=== PATIENT | female | born 1945 | race Caucasian/White ===

== ENCOUNTER 2017-12-26 07:47 | Day surgery (SDC) | payer BC ==
[2017-12-26] MEDS ORDERED: Sodium Chloride 0.9% 1,000 ML IV SCH (08:00)
[2017-12-26] MEDS ORDERED: Sodium Chloride 0.9% 5 ML Syringe FLUSH PRN (08:00)
[2017-12-26] MEDS ORDERED: Propofol 200 MG/20 ML SDV ONE (09:12)
[2017-12-26] MEDS ORDERED: Propofol 200 MG/20 ML SDV IV ONE (10:14)
--- NOTE | 2017-12-26 11:33 | PCM.PRNOTE ---
- Free Text/Narrative Note: PROCEDURE PERFORMED: Colonoscopy PRE-PROCEDURE DIAGNOSIS/INDICATION FOR PROCEDURE: Positive FIT CONSENT: Informed consent was obtained prior to the procedure after discussion of the risks (including pain, bleeding, infection, perforation, adverse reaction to anesthesia, cardiovascular event), benefits and alternatives and expected outcomes. The patient expressed understanding and wished to proceed. Verbal consent given and consent form signed. PROCEDURAL PAUSE: Completed SEDATION: Per anesthesia DESCRIPTION OF PROCEDURE: Patient was placed in the left lateral decubitus position. After adequate sedation and anesthetic was administered, a rectal exam was performed revealing no abnormalities. A lubricated Olympus Video Colonoscope was inserted into the rectum and air insufflation was performed. The colonoscope was advanced through the rectum, sigmoid, descending, transverse , and ascending colon without difficulties. The cecum was reached and the ileocecal valve as well as the appendiceal orifice were identified and pictorially documented. After adequate visualization of the cecum, the scope was withdrawn, giving 360-degree views of the colonic mucosa and retroflexion was performed in the rectum with the following findings noted: Ileocecal valve: Normal Cecum: 4mm polyp removed with cold forceps without residual polypoid tissue noted and adequate hemostasis noted Ascending colon: Normal Hepatic flexure: Normal Transverse colon: Normal Splenic flexure: Normal Descending colon: Normal Sigmoid colon: Normal Rectum: Normal The scope was straightened, air suction performed, and the scope withdrawn without complication. Preparation adequacy good. IMPRESSION: Colonoscopy performed revealing one polyp, pathology now pending PLAN: Follow-up in clinic to review pathology results once received and determine repeat colonoscopy interval
== END 2017-12-26 12:15 | disposition home or self-care (01) ==
LOC: KA.SDS 07:47
PROVIDERS: ATTEND Family Medicine
DX: D12.0 Benign neoplasm of cecum (principal); D50.9 Iron deficiency anemia, unspecified; E11.22 Type 2 diabetes mellitus with diabetic chronic kidney disease; I12.9 Hypertensive chronic kidney disease with stage 1 through stage 4 chronic kidney disease, or unspecified chronic kidney disease; N18.9 Chronic kidney disease, unspecified; E78.5 Hyperlipidemia, unspecified; E03.9 Hypothyroidism, unspecified; M81.0 Age-related osteoporosis without current pathological fracture; Z79.4 Long term (current) use of insulin; Z79.899 Other long term (current) drug therapy; Z88.8 Allergy status to other drugs, medicaments and biological substances; Z98.84 Bariatric surgery status
CPT/HCPCS: 82962; 88305; J2704; J7030

== ENCOUNTER 2019-04-16 17:28 | Emergency (ER) | payer BC ==
[2019-04-16] MEDS ORDERED: Lidocaine 1% with EPINEPHrine 1:100,000 20 ML MDV ONE (18:02)
--- NOTE | 2019-04-16 18:47 | EDM.PDOC ---
ED HPI GENERAL MEDICAL PROBLEM - General Chief Complaint: ENT Problem Stated Complaint: HIT IN LEFT EYE WITH BASEBALL Time Seen by Provider: 04/16/19 17:38 Source of Information: Reports: Patient, Significant Other History Limitations: Reports: No Limitations - History of Present Illness INITIAL COMMENTS - FREE TEXT/NARRATIVE: Patient presents with left eye and cheek pain and swelling after being hit with a baseball. She was pitching to her grandson and the batted ball hit her directly in the left eye. She fell to the ground but didn't have LOC. The eye is swollen completely shut but she thinks she can see okay out of it. She feels like her sinuses are full. She denies any neck pain. Treatments INDEPENDENT VIDEO PRODUCER: Reports: Cold Therapy - Related Data Allergies Allergy/AdvReac Type Severity Reaction Status Date / Time [id number] Reductase Allergy Muscle Verified 04/16/19 18:05 Inhibitor Aches Home Meds: Home Meds Ascorbate Calcium [Vitamin C] 500 mg PO DAILY 12/23/17 [History] Calcium Carb/Vit D3/Minerals [Calcium 600+D Plus Minerals] 1 each PO DAILY 12/23 [History] Cyanocobalamin (Vitamin B12) [Vitamin B12] 500 mcg PO DAILY 12/23/17 [History] Dulaglutide [Trulicity] 0.75 mg SQ WEEKLY 12/23/17 [History] Insulin Detemir [Levemir Flextouch] 14 unit SQ BEDTIME 12/23/17 [History] Levothyroxine 75 mcg PO ACBREAKFAST 12/23/17 [History] Multivitamin with Minerals [Multiple Vitamin] 1 tab PO DAILY 12/23/17 [History] Omeprazole [priLOSEC OTC] 20 mg PO DAILY PRN 12/23/17 [History] hydroCHLOROthiazide [Hydrochlorothiazide] 12.5 mg PO DAILY 12/23/17 [History] metFORMIN HCl [Metformin HCl] 1,000 mg PO BID 12/23/17 [History] Denosumab [Prolia] 60 mg SUBCUT ASDIRECTED 03/15/19 [History] Enalapril [Vasotec] 5 mg PO BEDTIME 03/15/19 [History] Past Medical History HEENT History: Reports: Impaired Vision Cardiovascular History: Reports: High Cholesterol, Hypertension Gastrointestinal History: Reports: GERD DIRECTOR EMERGENCY DEPARTMENT History: Reports: Musculoskeletal History: Reports: Fracture, Other (See Below) Other Musculoskeletal History: ganglion cyst of wrist Endocrine/Metabolic History: Reports: Diabetes, Type II, Hyperparathyroidism, Hypothyroidism, Obesity/BMI 30+, Osteoporosis Hematologic History: Reports: Anemia, B12 Deficiency, Iron Deficiency Oncologic (Cancer) History: Reports: Squamous Cell Carcinoma, Other (See Below) Other Oncologic History: 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 Denies: Ear Discharge, Ear Pain, Eye Discharge, Throat Pain Respiratory: Denies: Shortness of Breath, Cough Cardiovascular: Denies: Chest Pain, Lightheadedness, Syncope Endocrine: Reports: No Symptoms GI/Abdominal: Denies: Abdominal Pain, Nausea, Vomiting : Reports: No Symptoms Musculoskeletal: Denies: Neck Pain, Shoulder Pain, Arm Pain, Back Pain, Hand Pain Skin: Denies: Cyanosis, Jaundice, Mottled, Pallor, Diaphoresis Neurological: Denies: Confusion, Dizziness, Headache, Seizure, Syncope, Trouble Speaking, Difficulty Walking Psychiatric: Denies: Agitation, Anxiety, Confusion ED EXAM GENERAL W FULL EYE - Physical Exam Exam: See Below Exam Limited By: No Limitations General Appearance: Alert, WD/WN, No Apparent Distress Eye Exam: Left Eye: Proptosis (minimal noted on CT), Bilateral Eye: EOMI, Normal Fundi (bilat red reflex), PERRL Eyelids: Right: Normal Appearance, Left: Edema, Ecchymosis Conjunctiva & Sclera: Right: Normal Appearance, Left: Subconjuctival Hemorrhage (lateral) Extraocular Movements: Bilateral: Intact Pupils: Normal Accommodation Pupillary Size: Bilateral: 3 mm Pupillary Reaction: Bilateral: Brisk Ears: Normal External Exam, Normal Canal, Hearing Grossly Normal, Normal TMs Nose: Normal Inspection, No Blood Throat/Mouth: Normal Inspection, Normal Lips, Normal Voice, No Airway Compromise Head: Facial Swelling (left cheek and lower eye lid; left eye lids are completely closed over eye unless manually opened.), Other (3 cm forehead laceration just above left lateral eyebrow) Neck: Normal Inspection, Supple, Non-Tender, Full Range of Motion Respiratory/Chest: No Respiratory Distress, Lungs Clear, Normal Breath Sounds Cardiovascular: Regular Rate, Rhythm, No Murmur GI/Abdominal: Normal Bowel Sounds, Soft, Non-Tender Back Exam: Normal Inspection Extremities: Normal Inspection Neurological: Alert, Oriented, CN II-XII Intact, Normal Cognition, No Motor/ Sensory Deficits Psychiatric: Normal Affect, Normal Mood Skin Exam: Warm, Dry, Intact (except forehead), Normal Color, No Rash Course - Vital Signs Last Recorded V/S: Last Vital Signs Temp 97.1 F 04/16/19 17:35 Pulse 78 04/16/19 17:35 Resp 18 04/16/19 17:35 BP 184/55 H 04/16/19 17:35 Pulse Ox 97 04/16/19 17:35 - Orders/Labs/Meds Orders: Active Orders 24 hr Category Date Time Status Head wo Cont [CT] Stat Exams 04/16/19 18:40 Ordered Maxillofacial w/o CM [Max Facial Sinus wo Cont] [CT] Exams 04/16/19 18:40 Ordered Stat Meds: Medications Discontinued Medications Generic Name Dose Route Start Last Admin Trade Name Rosangela PRN Reason Stop Dose Admin Lidocaine/Epinephrine Confirm 04/16/19 18:02 Xylocaine 1% With Epinephrine 1:100,000 Administered 04/16/19 18:03 Dose 20 ml .ROUTE .STK-MED ONE - Re-Assessments/Exams Free Text/Narrative Re-Assessment/Exam: 04/16/19 20:32 CT shows a tripod fracture of the left orbit as well as the left temporal bone and articular condylar surface of left mandible, minimal left-sided proptosis and blood in left maxillary sinus. Dr. Gonsalze, radiologist discussed this with and recommended ophthalmology consult. I called [facility] and discussed case with Dr. Green, Facial Trauma Surgeon, and Dr. Gonzales, ophthalologist. They looked at the CT results and advised follow up tomorrow in ophthalmology clinic but nothing necessary tonight. I discussed this with patient along with the treatments and precautions advised by chef de partie. She is discharged to home in stable condition. Departure - Departure Time of Disposition: 20:37 Disposition: Home, Self-Care 01 Condition: Good Clinical Impression: Proptosis Closed tripod fracture of zygomaticomaxillary complex Qualifiers: Encounter type: initial encounter Qualified Code(s): S02.402A - Zygomatic fracture, unspecified side, initial encounter for closed fracture; S02.30XA - Fracture of orbital floor, unspecified side, initial encounter for closed fracture; S02.401A - Maxillary fracture, unspecified side, initial encounter for closed fracture; S02.80XA - Fracture of other specified skull and facial bones, unspecified side, initial encounter for closed fracture Fracture of left condylar process of mandible Qualifiers: Encounter type: initial encounter Fracture type: closed Qualified Code(s): S02.612A - Fracture of condylar process of left mandible, initial encounter for closed fracture Laceration of eyebrow, left Qualifiers: Encounter type: initial encounter Qualified Code(s): S01.112A - Laceration without foreign body of left eyelid and periocular area, initial encounter - Discharge Information Referrals: Brenna Dyer MD [Primary Care Provider] - Additional Instructions: 1. Take the antibiotic tonight with food and again tomorrow morning. 2. You can shower tonight. 3. Avoid blowing your nose to limit pressure around the eye. 4. If you have to sneeze keep your mouth open. 5. Don't take any Ibuprofen, aspirin or other anti-imflammatories. 6. Tomorrow morning call [phone] to make an appointment with the chef de partie for later tomorrow. While you are seeing them ask how long they want you to take the Augmentin antibiotic. 7. Keep the laceration clean and dry except for showering. 8. Follow up with your PCP in 7-10 days for suture removal. - My Orders Last 24 Hours: My Active Orders 04/16/19 18:40 Head wo Cont [CT] Stat Maxillofacial w/o CM [Max Facial Sinus wo Cont] [CT] Stat - Assessment/Plan Last 24 Hours: My Active Orders 04/16/19 18:40 Head wo Cont [CT] Stat Maxillofacial w/o CM [Max Facial Sinus wo Cont] [CT] Stat
--- NOTE | 2019-04-16 19:43 | CT ---
[id number] CT/CT Head WO IV EXAM: CT Head WO IV CLINICAL DATA: TRAUMA COMPARISON: NO PREVIOUS SIMILAR EXAM IS AVAILABLE FOR COMPARISON. FINDINGS: There are fractures of the lateral wall of the left orbit, left zygomatic arch, and the floor of the left orbit. There is a fracture of the posterior body of the left zygoma with extension to the anterior wall of the glenoid fossa of the left temporal mandibular joint and involvement of the condylar head of the left TMJ. There is proptosis of the left orbit. There is no orbital emphysema. There is no intracranial air. There is no intracranial hemorrhage. There is no renal mass or mass effect. There is no extra-axial fluid collection. There is no hydrocephalus. There is a small osteoma of the right-sided ethmoid air cells. There is opacification of the left maxillary sinus with blood. Report called at time of dictation. IMPRESSION: TRIPOD FRACTURE LEFT ORBIT NO PLAIN CT EVIDENCE OF ACUTE INTRACRANIAL PROCESS. Asael Gonsalez MD 04/16/19 1943 Thank you for allowing us to participate in the care of your patient.
--- NOTE | 2019-04-16 19:47 | CT ---
[id number] CT/CT Facial Bones WO IV Exam: CT Facial Bones WO IV Clinical Data: TRAUMA COMPARISON: CORRELATION IS MADE WITH THE PLAIN CT BRAIN FINDINGS: There is a tripod fracture of the left orbit involving the left zygomaticofrontal suture, left zygomatic arch, the floor of the left orbit, and also the zygomatic process of the left temporal bone. The fracture of the zygomatic process of the left temporal bone extends to the glenoid fossa of the left TMJ. There appears to also be a fracture of the articular surface of the condyle of the left mandible. There is hyperdense blood in the left maxillary sinus. There is minimal left-sided proptosis. Report called at the time of the dictation. Ophthalmology consultation would be helpful. IMPRESSION: TRIPOD FRACTURE LEFT ORBIT WITH ALSO INVOLVEMENT OF THE POSTERIOR ZYGOMA AND LEFT TMJ. Asael Gonsalez MD 04/16/19 1946 Thank you for allowing us to participate in the care of your patient.
[2019-04-16] MEDS ORDERED: Amoxicillin/Clavulanate K 875-125 MG Tab PO ONE (20:23)
== END 2019-04-16 21:00 | disposition home or self-care (01) ==
LOC: KA.ED 17:28
DX: S02.32XA Fracture of orbital floor, left side, initial encounter for closed fracture (principal); S02.612A Fracture of condylar process of left mandible, initial encounter for closed fracture; S02.40FA Zygomatic fracture, left side, initial encounter for closed fracture; S02.40DA Maxillary fracture, left side, initial encounter for closed fracture; S02.19XA Other fracture of base of skull, initial encounter for closed fracture; S01.112A Laceration without foreign body of left eyelid and periocular area, initial encounter; H05.232 Hemorrhage of left orbit; I10 Essential (primary) hypertension; K21.9 Gastro-esophageal reflux disease without esophagitis; E11.9 Type 2 diabetes mellitus without complications; E03.9 Hypothyroidism, unspecified; Z79.899 Other long term (current) drug therapy; Z88.8 Allergy status to other drugs, medicaments and biological substances; W21.03XA Struck by baseball, initial encounter
CPT/HCPCS: 12013; 70450; 70486; 99284; A9270; 12002

== ENCOUNTER 2023-06-18 10:10 | Emergency (ER) | payer BC ==
[2023-06-18] MEDS ORDERED: HYDROmorphone 1 MG/ML Syringe ONE (10:28)
[2023-06-18] MEDS ORDERED: HYDROmorphone 1 MG/ML Syringe IM ONE (10:29)
[2023-06-18] MEDS ORDERED: Acetaminophen/HYDROcodone 325-5 MG Tab PO ONE ×2 (12:26)
== END 2023-06-18 12:39 | disposition home or self-care (01) ==
LOC: KA.ED 10:10
DX: G89.3 Neoplasm related pain (acute) (chronic) (principal); C25.2 Malignant neoplasm of tail of pancreas; S22.000S Wedge compression fracture of unspecified thoracic vertebra, sequela; S32.000S Wedge compression fracture of unspecified lumbar vertebra, sequela; E11.9 Type 2 diabetes mellitus without complications; I10 Essential (primary) hypertension; E03.9 Hypothyroidism, unspecified; K21.9 Gastro-esophageal reflux disease without esophagitis; Z88.8 Allergy status to other drugs, medicaments and biological substances; Z79.899 Other long term (current) drug therapy
CPT/HCPCS: 72100; 72170; 96372; 99283; 99284; A9270-GY; J1170